=== PATIENT | male | born 1995 | race Caucasian/White ===

== ENCOUNTER 2016-09-02 22:57 | Emergency (ER) | payer OTHER ==
[2016-09-02 23:04] VITALS: BP 141/88; PULSE 87; TEMP 98.2; BMI 28.1
[2016-09-02] MEDS ORDERED: SODIUM CHLORIDE 1,000 ML IV STA (23:34)
--- NOTE | 2016-09-02 23:45 | PDOC ---
History of Present Illness - General History Source: Patient Exam Limitations: No Limitations - History of Present Illness Initial Comments: 09/03/16 00:06 The patient is a 21 year old male with no significant past medical history who presents to the ED with complaints of testicular pain and abdominal pain since yesterday. The patient reports a sudden onset of right testicular pain. He notes he developed right flank pain radiating to his right lower quadrant. Patient reports having sexual relations with his girlfriend but denies any other sexual partners. Denies a history of STDs. Denies penile discharge. Denies dysuria, frequency, or hematuria. Denies fevers or chills. Denies any other symptoms. <Sofía Novak - Last Filed: 09/03/16 00:05> - General History Source: Patient Exam Limitations: No Limitations <Yanick Schneider - Last Filed: 09/03/16 02:00> - General Chief Complaint: Pain Stated Complaint: GENITAL PAIN Time Seen by Provider: 09/02/16 23:19 Past History <Sofía Novak - Last Filed: 09/03/16 00:05> - Psycho/Social/Smoking Cessation Hx Suicidal Ideation: No Smoking History: Never smoked <Yanick Schneider - Last Filed: 09/03/16 02:00> - Past Medical History Allergies/Adverse Reactions: Allergies Allergy/AdvReac Type Severity Reaction Status Date / Time No Known Allergies Allergy Verified 09/02/16 23:02 Home Medications: Ambulatory Orders Ibuprofen 600 mg PO Q6H PRN #20 tablet 09/03/16 Levofloxacin [Levaquin -] 500 mg PO DAILY #10 tablet 09/03/16 Review of Systems - Review of Systems Able to Perform ROS?: Yes Comments:: 09/03/16 00:06 GENERAL/CONSTITUTIONAL: No fever or chills. No weakness. HEAD, EYES, EARS, NOSE AND THROAT: No change in vision. No ear pain or discharge. No sore throat. CARDIOVASCULAR: No chest pain or shortness of breath. RESPIRATORY: No cough, wheezing, or hemoptysis. GASTROINTESTINAL: No nausea, vomiting, diarrhea or constipation. GENITOURINARY: No dysuria, frequency, or change in urination. MUSCULOSKELETAL: No joint or muscle swelling or pain. No neck or back pain. SKIN: No rash NEUROLOGIC: No headache, vertigo, loss of consciousness, or change in strength/ sensation. ENDOCRINE: No increased thirst. No abnormal weight change. HEMATOLOGIC/LYMPHATIC: No anemia, easy bleeding, or history of blood clots. ALLERGIC/IMMUNOLOGIC: No hives or skin allergy. All Other Systems: Reviewed and Negative <Sofía Novak - Last Filed: 09/03/16 00:05> *Physical Exam - Vital Signs Last Vital Signs Temp Pulse Resp BP Pulse Ox 98.2 F 87 18 141/88 100 09/02/16 23:02 09/02/16 23:02 09/02/16 23:02 09/02/16 23:02 09/02/16 23:02 - Physical Exam Comments: 09/03/16 00:06 GENERAL: Awake, alert, and fully oriented, in no acute distress HEAD: No signs of trauma EYES: PERRLA, EOMI, sclera anicteric, conjunctiva clear ENT: Auricles normal inspection, hearing grossly normal, nares patent, oropharynx clear without exudates. Moist mucosa NECK: Normal ROM, supple, no lymphadenopathy, JVD, or masses LUNGS: Breath sounds equal, clear to auscultation bilaterally. No wheezes, and no crackles HEART: Regular rate and rhythm, normal S1 and S2, no murmurs, rubs or gallops ABDOMEN: + right lower quadrant tenderness. Soft, normoactive bowel sounds. No guarding, no rebound. No masses GENITAL: + Mild right testicular tenderness around epididymitis vertical lie. no swelling appreciated. uncircumsized penis, no drainage EXTREMITIES: Normal range of motion, no edema. No clubbing or cyanosis. No cords, erythema, or tenderness NEUROLOGICAL: Normal speech, no CVA tenderness. SKIN: Warm, Dry, normal turgor, no rashes or lesions noted. <Sofía Novak - Last Filed: 09/03/16 00:05> - Vital Signs Last Vital Signs Temp Pulse Resp BP Pulse Ox 98.2 F 87 18 141/88 100 09/02/16 23:02 09/02/16 23:02 09/02/16 23:02 09/02/16 23:02 09/02/16 23:02 <Yanick Schneider - Last Filed: 09/03/16 02:00> ED Treatment Course - ADDITIONAL ORDERS Additional order review: Laboratory Results 09/02/16 23:48 Urine Color Ltyellow Urine Appearance Clear Urine pH 6.0 Urine Protein Negative Urine Glucose (UA) Negative Urine Ketones Negative Urine Blood Negative Urine Nitrite Negative Urine Bilirubin Negative Urine Urobilinogen Negative Ur Leukocyte Esterase Negative <Sofía Novak - Last Filed: 09/03/16 00:05> - LABORATORY CBC & Chemistry Diagram: 09/03/16 01:00 09/03/16 01:00 - RADIOLOGY Radiology Studies Ordered: Category Date Time Status SPIRAL- RENAL-STONE CT [CT] Stat CT Scan 09/02/16 23:33 Ordered SCROTUM AND CONTENTS US [US] Stat Ultrasound 09/02/16 23:33 Ordered <Yanick Schneider - Last Filed: 09/03/16 02:00> Medical Decision Making - Medical Decision Making 09/02/16 23:51 A portion of this note was documented by scribe services under my direction. I have reviewed the details of the note, within reason, and agree with the documentation with the following case summary and management plan written by me. Patient treated in the ED. Nursing notes are reviewed and incorporated into the medical decision-making. Vital signs reviewed. Peripheral IV access obtained by the nurse, laboratory studies are drawn and sent, reviewed and interpreted by myself. Vital Signs Temp Pulse Resp BP Pulse Ox 98.2 F 87 18 141/88 100 09/02/16 23:02 09/02/16 23:02 09/02/16 23:02 09/02/16 23:02 09/02/16 23:02 21-year-old male with no past medical history presents with right testicular pain and right sided abdominal pain since yesterday afternoon. Patient reports intermittent right testicular pain. States also has right flank pain radiating to right lower quadrant pain. Denies hematuria or dysuria. Patient reports that he is sexually active with his girlfriend. However has no other sexual partners. Denies history of STDs. Has family history of kidney stones. Denies fevers or chills. Denies nausea or vomiting. I have low suspicion for testicular torsion at this time. However, within the differential is orchitis versus epididymitis. We'll obtain a urinalysis and a scrotal ultrasound. However, given the right lower quadrant pain and right flank pain, we'll need to rule out appendicitis versus renal colic. Labs, IV fluids. Patient declined pain meds at this time. 09/03/16 01:40 CT scan reviewed. No appendicitis. No kidney stones. CBC, BMP 09/03/16 01:00 Urine Test Results Urine Color Ltyellow 09/02/16 23:48 Urine Appearance Clear 09/02/16 23:48 Urine pH 6.0 (5.0-8.0) 09/02/16 23:48 Urine Protein Negative (NEGATIVE) 09/02/16 23:48 Urine Glucose (UA) Negative (NEGATIVE) 09/02/16 23:48 Urine Ketones Negative (NEGATIVE) 09/02/16 23:48 Urine Blood Negative (NEGATIVE) 09/02/16 23:48 Urine Nitrite Negative (NEGATIVE) 09/02/16 23:48 Urine Bilirubin Negative (NEGATIVE) 09/02/16 23:48 Ur Leukocyte Esterase Negative (NEGATIVE) 09/02/16 23:48 09/03/16 01:55 CMP Sodium 142 mmol/L (136-145) 09/03/16 01:00 Potassium 4.2 mmol/L (3.5-5.1) 09/03/16 01:00 Chloride 103 mmol/L (98-107) 09/03/16 01:00 Carbon Dioxide 29 mmol/L (21-32) 09/03/16 01:00 Anion Gap 10 (8-16) 09/03/16 01:00 BUN 15 mg/dL (7-18) 09/03/16 01:00 Creatinine 0.8 mg/dL (0.7-1.3) 09/03/16 01:00 Creat Clearance w eGFR > 60 (>60) 09/03/16 01:00 Random Glucose 97 mg/dL (74-106) 09/03/16 01:00 Calcium 9.1 mg/dL (8.5-10.1) 09/03/16 01:00 Total Bilirubin 0.3 mg/dL (0.2-1.0) 09/03/16 01:00 AST 15 U/L (15-37) 09/03/16 01:00 ALT 23 U/L (12-78) 09/03/16 01:00 Alkaline Phosphatase 74 U/L (45-117) 09/03/16 01:00 Total Protein 6.8 g/dl (6.4-8.2) 09/03/16 01:00 Albumin 3.9 g/dl (3.4-5.0) 09/03/16 01:00 Lipase 117 U/L (73-393) 09/03/16 01:00 Ultrasound shows likely early orchitis. Will treat with ciprofloxacin. Patient again states no history of STDs and is not concern for STDs. NSAIDS F/u with urology Pt reports feeling much better <Yanick Schneider - Last Filed: 09/03/16 02:00> *DC/Admit/Observation/Transfer - Attestations Scribe Attestion: 09/03/16 00:06 Documentation prepared by Sofía Novak, acting as manager medical affairs for Yanick Schneider MD <Sofía Novak - Last Filed: 09/03/16 00:05> - Discharge Dispostion Admit: No <Yanick Schneider - Last Filed: 09/03/16 02:00> Diagnosis at time of Disposition: Orchitis - Discharge Dispostion Disposition: HOME Condition at time of disposition: Stable - Prescriptions Prescriptions: Ibuprofen 600 mg PO Q6H PRN #20 tablet PRN Reason: Pain Levofloxacin [Levaquin -] 500 mg PO DAILY #10 tablet - Referrals Referrals: Brandon Kaufman [Primary Care Provider] - - Patient Instructions Printed Discharge Instructions: Epididymitis Additional Instructions: You have an infection in your testicle. Take levofloxacin 500 mg once a day for 10 days. 600 mg ibuprofen every 6 hours as needed for pain. Follow up with an urologist. Call to schedule an appointment.
[2016-09-03 00:03] LABS: URINE APPEARANCE CLEAR; URINE BILIRUBIN NEGATIVE (NEGATIVE); URINE BLOOD NEGATIVE (NEGATIVE); URINE COLOR LTYELLOW; URINE GLUCOSE (UA) NEGATIVE (NEGATIVE); URINE KETONE NEGATIVE (NEGATIVE); URINE LEUK ESTERASE NEGATIVE (NEGATIVE); URINE NITRITE NEGATIVE (NEGATIVE); URINE PROTEIN NEGATIVE (NEGATIVE); URINE UROBILINOGEN NEGATIVE E.U./dl (0.2-1.0)
[2016-09-03 01:11] LABS: BASOPHIL 0.7 % (0-2.0); EOSINOPHIL 0.9 % (0-4.5); MCH 28.9 pg (25.7-33.7); MCHC 33.3 g/dl (32.0-35.9); MEAN CELL VOLUME 86.8 fl (80-96); NEUTROPHILS 63.3 % (42.8-82.8); PLATELET COUNT 167 K/MM3 (134-434); RDW 13.4 % (11.9-15.9)
[2016-09-03 01:40] LABS: ALBUMIN 3.9 g/dl (3.4-5.0); ALK PHOS 74 U/L (45-117); ANION GAP 10 (8-16); BILIRUBIN,TOTAL 0.3 mg/dL (0.2-1.0); CALCIUM 9.1 mg/dL (8.5-10.1); CO2 29 mmol/L (21-32); CREATININE 0.8 mg/dL (0.7-1.3); GLUCOSE,RANDOM 97 mg/dL (74-106); SGOT/AST 15 U/L (15-37); SGPT/ALT 23 U/L (12-78); TOT PROT 6.8 g/dl (6.4-8.2)
[2016-09-03] MEDS ORDERED: KETOROLAC TROMETHAMINE 30 MG/1 ML VIAL IVPUSH ONE (01:40)
[2016-09-03] MEDS ORDERED: KETOROLAC TROMETHAMINE 30 MG/1 ML VIAL ONE (01:42)
[2016-09-03] MEDS ORDERED: LEVOFLOXACIN 500 MG TABLET (FP) PO ONE (01:55)
[2016-09-03] MEDS ORDERED: LEVOFLOXACIN 500 MG TABLET (FP) ONE (02:00)
== END 2016-09-03 02:19 | disposition home or self-care (01) ==
LOC: JER 22:57
PROC: 3E0337Z Introduction of Electrolytic and Water Balance Substance into Peripheral Vein, Percutaneous Approach (ICD-10-PCS; principal; 2016-09-02)
PROC: 3E0333Z Introduction of Anti-inflammatory into Peripheral Vein, Percutaneous Approach (ICD-10-PCS; 2016-09-02)
DX: N45.2 Orchitis (principal)
CPT/HCPCS: 36415; 74176; 76870-TC; 80053; 81003; 83690; 85025; 87086; 99281-25; 99282-25

== ENCOUNTER 2018-04-21 00:14 | Emergency (ER) | payer OTHER ==
[2018-04-21 01:21] VITALS: BP 132/92; PULSE 95; TEMP 98.1; BMI 29.7
--- NOTE | 2018-04-21 01:57 | PDOC ---
History of Present Illness - General Chief Complaint: Cold Symptoms Stated Complaint: PAIN Time Seen by Provider: 04/21/18 01:30 History Source: Patient Exam Limitations: No Limitations - History of Present Illness Initial Comments: 04/21/18 01:55 Best Contact: PCP: Dr. Villa/[facility] Pmhx:Asthma/No h/o intubation/recent admissions Pshx: None Allergies: NKDA FH: Father 70 yo/NIDDM, Mother 57yo renal colic Social Hx: Cigarettes/0 Alcohol/ Social Drugs/0 22-year-old male presents to the emergency department complaining of left-sided anterior/lower lateral rib pains since last evening with subjective fever but denies chills, nausea/vomiting, headache, lightheadedness, dizziness, facial pains, earache, sore throat, neck pain/stiffness, back pains, chest pain, shortness of breath, flank pains, dominant pains, urinary symptoms: Frequency/ urgency/hesitancy, hematuria. Patient states he has similar symptoms previously when diagnosis of bronchitis. The pain is exacerbated on touch and deep inspiration and alleviated minimally at rest. Patient saw his doctor 5 days ago and 3 weeks ago and was given an inhaler for his symptoms. Past History - Past Medical History Allergies/Adverse Reactions: Allergies Allergy/AdvReac Type Severity Reaction Status Date / Time No Known Allergies Allergy Verified 04/21/18 01:19 Home Medications: Ambulatory Orders Ibuprofen 600 mg PO Q6H PRN #20 tablet 09/03/16 - Suicide/Smoking/Psychosocial Hx Smoking History: Never smoked Have you smoked in the past 12 months: No Information on smoking cessation initiated: No Hx Alcohol Use: No Drug/Substance Use Hx: No Review of Systems - Review of Systems Able to Perform ROS?: Yes Comments:: 04/21/18 02:00 CONSTITUTIONAL: Absent: fever, chills, diaphoresis, generalized weakness, malaise, loss of appetite HEENT: Absent: rhinorrhea, nasal congestion, throat pain, throat swelling, difficulty swallowing, mouth swelling, ear pain, eye pain, visual Changes CARDIOVASCULAR: Absent: chest pain, loss of consciousness, palpitations, irregular heart rate, peripheral edema RESPIRATORY: +cough/yellow phlegm x 1 month, pain to left sided lower ribs on palp Absent: shortness of breath, dyspnea with exertion, orthopnea, wheezing, stridor, hemoptysis GASTROINTESTINAL: Absent: abdominal pain, abdominal distension, nausea, vomiting, diarrhea, constipation, melena, hematochezia GENITOURINARY: Absent: dysuria, frequency, urgency, hesitancy, hematuria, flank pain, genital pain MUSCULOSKELETAL: Absent: myalgia, arthralgia, joint swelling SKIN: Absent: rash, itching, pallor HEMATOLOGIC/IMMUNOLOGIC: Absent: easy bleeding, easy bruising, lymphadenopathy, frequent infections ENDOCRINE: Absent: unexplained weight gain, unexplained weight loss, heat intolerance, cold intolerance NEUROLOGIC: Absent: headache, focal weakness or paresthesias, dizziness, unsteady gait, seizure, mental status changes, bladder or bowel incontinence Is the patient limited [place] proficient: No *Physical Exam - Vital Signs Last Vital Signs Temp Pulse Resp BP Pulse Ox 98.1 F 95 H 18 132/92 100 04/21/18 00:25 04/21/18 00:25 04/21/18 00:25 04/21/18 00:25 04/21/18 00:25 - Physical Exam Comments: 04/21/18 02:00 GENERAL: Well developed, well nourished. Awake and alert. No acute distress. HEENT: Normocephalic, atraumatic. PERRLA, EOMI. No conjunctival pallor. Sclera are non- icteric. Moist mucous membranes. Oropharynx is clear. NECK: Supple. Full ROM. No JVD. Carotid pulses 2+ and symmetric, without bruits. No thyromegaly. No lymphadenopathy. CARDIOVASCULAR: Regular rate and rhythm. No murmurs, rubs, or gallops. Distal pulses are 2+ and symmetric. PULMONARY: No evidence of respiratory distress. Lungs clear to auscultation bilaterally. No wheezing, rales or rhonchi. ABDOMINAL: Soft. Non-tender. Non-distended. No rebound or guarding. No organomegaly. Normoactive bowel sounds. MUSCULOSKELETAL Normal range of motion at all joints. No bony deformities or tenderness. No CVA tenderness. EXTREMITIES: No cyanosis. No clubbing. No edema. No calf tenderness. SKIN: Warm and dry. Normal capillary refill. No rashes. No jaundice. Moderate Sedation - Procedure Monitoring Vital Signs: Procedure Monitoring Vital Signs Temperature 98.1 F 04/21/18 00:25 Pulse Rate 95 H 04/21/18 00:25 Respiratory Rate 18 04/21/18 00:25 Blood Pressure 132/92 04/21/18 00:25 O2 Sat by Pulse Oximetry (%) 100 04/21/18 00:25 ED Treatment Course - RADIOLOGY Radiograph Interpretation: 04/21/18 02:51 CXR 2v NAD *DC/Admit/Observation/Transfer Diagnosis at time of Disposition: Rib pain on left side - Discharge Dispostion Disposition: HOME Condition at time of disposition: Stable Decision to Admit order: No - Referrals Referrals: Maite Villa MD [Primary Care Provider] - - Patient Instructions Printed Discharge Instructions: DI for Acute Bronchitis Additional Instructions: Tylenol alternating with Motrin as needed for pain Supportive care: [id number] medication for your cough Increase fluids Antibiotics as prescribed Return back to the ER for severe/persistent or worsening symptoms - Post Discharge Activity
[2018-04-21] MEDS ORDERED: KETOROLAC TROMETHAMINE 60 MG/2 ML VIAL IM ONE (02:49)
[2018-04-21] MEDS ORDERED: KETOROLAC TROMETHAMINE 60 MG/2 ML VIAL ONE (03:09)
--- NOTE | 2018-04-21 16:36 | EKG ---
Test Reason : Blood Pressure : / mmHG Vent. Rate : 084 BPM Atrial Rate : 084 BPM P-R Int : 142 ms QRS Dur : 084 ms QT Int : 340 ms P-R-T Axes : 069 072 049 degrees QTc Int : 401 ms NORMAL SINUS RHYTHM WITH SINUS ARRHYTHMIA NORMAL ECG NO PREVIOUS ECGS AVAILABLE Confirmed by Celeste Vera ([id number]) on 04/21/2018 4:36:37 PM Referred By: Confirmed By:Celeste Vera
== END 2018-04-21 03:13 | disposition home or self-care (01) ==
LOC: JER 00:14
PROC: 3E0233Z Introduction of Anti-inflammatory into Muscle, Percutaneous Approach (ICD-10-PCS; principal; 2018-04-21)
DX: J20.9 Acute bronchitis, unspecified (principal)
CPT/HCPCS: 71046-TC-FY; 93005; 93010; 99282-25